=== PATIENT | female | born 1960 | race Caucasian/White ===

== ENCOUNTER 2016-12-24 09:18 | Day surgery (SDC) | payer OTHER ==
[~2016-12-24] VITALS: Ht 170.2 cm; Wt 93.0 kg
[~2016-12-24 09:18] MED LIST: ASPIR 8181 M1 PO; ASTEPRO 0.15%30 ML BOTH NARES; CALTRATE 600 +1 EAC1 PO; DAILY MULTIPLE1 EACH PO; EXCEDRIN EXTRA1 EACH PO; PROAIR HFA8.5 GM IH
[2016-12-24 09:53] VITALS: BP 122/62
[2016-12-24 12:20] VITALS: BP 126/62
[2016-12-24 13:06] VITALS: BP 126/58
== END 2016-12-24 13:10 | disposition home or self-care (01) ==
LOC: SDC 09:18
PROC: 01N50ZZ Release Median Nerve, Open Approach (ICD-10-PCS; principal; 2016-12-24)
DX: G56.01 Carpal tunnel syndrome, right upper limb (principal); Z79.82 Long term (current) use of aspirin; F17.210 Nicotine dependence, cigarettes, uncomplicated; G47.33 Obstructive sleep apnea (adult) (pediatric)
CPT/HCPCS: J1100; J2250; J2405

== ENCOUNTER 2017-12-02 06:32 | Day surgery (SDC) | payer OTHER ==
[~2017-12-02] VITALS: Ht 171.4 cm; Wt 96.2 kg
[~2017-12-02 06:32] MED LIST changes: +ALLEGRA ALLERGY60 MG PO; +CELEBREX100 MG PO
[2017-12-02 07:20] VITALS: BP 133/64
[2017-12-02 10:29] VITALS: BP 121/75
[2017-12-02 11:04] VITALS: BP 129/69
== END 2017-12-02 11:21 | disposition home or self-care (01) ==
LOC: SDC 06:32
DX: N84.0 Polyp of corpus uteri (principal); N95.0 Postmenopausal bleeding; E78.5 Hyperlipidemia, unspecified; R73.03 Prediabetes; F17.200 Nicotine dependence, unspecified, uncomplicated
CPT/HCPCS: 88305; J0690; J1100; J1885; J2250; J2405; J3010